=== PATIENT | male | born 1975 | race African-American/Black ===

== ENCOUNTER 2019-05-21 09:10 | Emergency (ER) | payer OTHER ==
[~2019-05-21] VITALS: Ht 188 cm; Wt 76.1 kg
[2019-05-21] MEDS ORDERED: SODIUM CHLORIDE 0.9% 1,000 ML IV ONE (10:18)
[2019-05-21] MEDS ORDERED: KETOROLAC 30MG/ML VIAL IV STA (10:18)
[2019-05-21] MEDS ORDERED: METOCLOPRAMIDE HCL 10MG/2ML VIAL IV ONE (10:30)
[2019-05-21] MEDS ORDERED: DIPHENHYDRAMINE 50MG/ML VIAL IV ONE (10:30)
[2019-05-21 10:34] LABS: BASOPHILS % 0.9 % (0.0-2.0); HEMATOCRIT. 44.2 % (42.0-52.0); HEMOGLOBIN. 15.1 g/dL (14.0-18.0); LYMPHOCYTES % 20.5 % (20.0-50.0); MEAN CORPUSCULAR VOLUME 88.1 fL (80.0-94.0); MEAN PLATELET VOLUME 7.9 fl (7.4-10.4); MONOCYTES % 9.6 % (2.0-8.0); PLATELET 503 x1000/uL (130-400); RED BLOOD CELL COUNT 5.02 mill/uL (4.7-6.1)
[2019-05-21 10:43] LABS: CHLORIDE 106 mEq/L (98-107)
[2019-05-21 12:15] VITALS: BP 125/84
== END 2019-05-21 12:16 | disposition home or self-care (01) ==
LOC: ER 09:10
DX: R51 Headache (principal); R03.0 Elevated blood-pressure reading, without diagnosis of hypertension; R00.1 Bradycardia, unspecified
CPT/HCPCS: 36415; 80053; 82962; 85025; 93005; 96374; 96375; 99284; J1200; J1885; J2765; J7030

== ENCOUNTER 2019-05-22 05:58 | Emergency (ER) | payer OTHER ==
[~2019-05-22] VITALS: Ht 190.5 cm; Wt 75.0 kg
[2019-05-22] MEDS ORDERED: SODIUM CHLORIDE 0.9% 1,000 ML IV ONE (06:33)
[2019-05-22] MEDS ORDERED: DIPHENHYDRAMINE 25MG CAPSULE PO ONE (06:45)
[2019-05-22] MEDS ORDERED: METOCLOPRAMIDE HCL 10MG/2ML VIAL IV ONE (06:45)
[2019-05-22 07:50] VITALS: BP 127/81
== END 2019-05-22 07:58 | disposition home or self-care (01) ==
LOC: ER 05:58
DX: R51 Headache (principal); R03.0 Elevated blood-pressure reading, without diagnosis of hypertension
CPT/HCPCS: 70450; 96374; 99284; J2765; J7030; Q0163